=== PATIENT | female | born 1965 | race Caucasian/White ===

== ENCOUNTER → 2018-09-09 | Outpatient (CLI) | payer BC ==
[2018-09-09 14:12] VITALS: BP 148/89; PULSE 71; RESP 16; TEMP 98.5; BMI 36.3
--- NOTE | 2018-09-09 15:57 | P.GSHP ---
History of Present Illness H&P Date: 09/09/18 Chief Complaint: Abnormal mammogram and ultrasound The patient is a 53-year-old white female who underwent routine screening mammogram was noted to have an area of concern in the left breast. She subsequently had a left breast diagnostic mammogram and bilateral ultrasound. On the bilateral ultrasound she was noted to have within the right breast at the 5 o'clock position through a 5 mm hypoechoic nodule. Within the left breast at the 7 o'clock position there was a 6 x 5 mm hypoechoic area. The impression was these were suspicious findings and bilateral fine-needle ultrasound-guided aspiration or core biopsy recommended. The patient does not feel anything of concern in her breasts. The patient states that she has not had any history of trauma or infection in the breast. She drinks approximately 8-10 cups of coffee each morning. She does not smoke and is not exposed to secondhand smoke. She is chocolate every other day. Past family history: 1. Father: Liver cancer he doesn't drink or 2. Medical: Skin cancer 3. Paternal aunt colon cancer 4. Maternal aunt: Breast cancer 5. Maternal uncle: Leukemia 6. Maternal uncle: Throat cancer 7. Paternal aunt: Colon cancer 8. Paternal uncle: Kidney cancer Hormonal history: Menarche: 8 1 miscarriage, first live at 36, breast fed: Yes Menopause: Hysterectomy at 43 1 ovary removed control pills: 1 year Hormones: Negative Past surgical history: 1. One orally removed and hysterectomy 2. Foot surgery 3. Carpal tunnel Past medical history: 1. Fibromyalgia 2. Asthma 3. Hypertension 4. Prediabetic 5. Arthritis - Constitutional Constitutional: Denies chills, Denies fever - EENT Eyes: denies blurred vision, denies pain Ears: deny: decreased hearing, tinnitus Ears, nose, mouth and throat: Denies headache, Denies sore throat - Breasts Breasts: bilateral: as per HPI - Cardiovascular Cardiovascular: Reports high blood pressure - Respiratory Comment: Asthma - Gastrointestinal Gastrointestinal: Denies abdominal pain, Denies diarrhea, Denies nausea, Denies vomiting - Genitourinary (Female) Comment: Status post hysterectomy Genitourinary: Reports as per HPI - Menstruation Menstruation: Reports as per HPI - Musculoskeletal Musculoskeletal: Denies myalgias - Integumentary Integumentary: Reports rash - Neurological Neurological: Denies numbness, Denies weakness - Psychiatric Psychiatric: Denies anxiety, Denies depression - Endocrine Comment: Prediabetic Endocrine: Reports as per HPI - Hematologic/Lymphatic Comment: none - Allergic/Immunologic Allergic/Immunologic: Reports seasonal allergies Past Medical History History of Any Multi-Drug Resistant Organisms: None Reported Smoking Status: Never smoker Medications and Allergies Home Medications Medication Instructions Recorded Confirmed Type Albuterol Inhaler [Ventolin Hfa 1 - 2 puff INHALATION RT-Q6H 09/09/18 09/09/18 History Inhaler] Budesonide [Pulmicort Flexhaler] 2 puff INHALATION 09/09/18 History Cetirizine HCl 10 mg PO DAILY 09/09/18 09/09/18 History Clobetasol Propionate [Temovate 1 applic TOPICAL 09/09/18 History 0.05% Cream] Losartan/Hydrochlorothiazide 1 each PO 09/09/18 History [Losartan-Hctz 100-25 mg Tab] Metoprolol Tartrate [Lopressor] 50 mg PO BID 09/09/18 09/09/18 History Allergies Allergy/AdvReac Type Severity Reaction Status Date / Time sulfamethoxazole Allergy Rash/Hives Unverified 09/09/18 14:12 [From Bactrim] trimethoprim [From Bactrim] Allergy Rash/Hives Unverified 09/09/18 14:12 Surgical - Exam Vital Signs Temp Pulse Resp BP Pulse Ox 98.5 F 71 16 148/89 96 09/09/18 14:07 09/09/18 14:07 09/09/18 14:07 09/09/18 14:07 09/09/18 14:07 BMI 36.6 - General well developed, well nourished, no distress, obese - Eyes normal ocular movement - ENT no hearing loss, no congestion - Neck no masses, trachea midline - Respiratory normal respiratory effort, clear to auscultation - Cardiovascular Rhythm: regular Heart Sounds: normal: S1, S2 - Abdomen Abdomen: soft, non tender, no guarding, no rigid, no rebound - Integumentary normal turgor - Neurologic no disoriented, no combative - Musculoskeletal normal gait, normal posture - Psychiatric oriented to time, oriented to person, oriented to place, speech is normal, memory intact Breast examination: Breast size 44 triple D Right breast: Multi-positional exam fibrocystic changes no dominant masses or nodules of concern Right axilla: No adenopathy of concern {: Multi-positional exam dominant masses or nodules of concern Left axilla: No adenopathy of concern Results Mammogram and ultrasound results reviewed Assessment and Plan Assessment: Impression: 1. Abnormal mammogram 2. Abnormal ultrasound 3. Fibrocystic breast changes 4. Fibromyalgia 5. Asthma 6. Hypertension 7. Prediabetic 8. Arthritis The risks and benefits of ultrasound-guided aspiration/core biopsy were discussed with the patient. She understands this is to be scheduled in the near future. Additionally the patient understands that there was cystic changes can be exacerbated by caffeine intake and she has agreed to decrease her 8-10 cups of coffee each morning. Plan: 1. Ultrasound guided aspiration/biopsy of lesions of concern in both right and left breast 2. Decrease caffeine intake 3. Medical management of medical conditions 4. Follow-up after biopsy of breast performed Cc:
== END | disposition home or self-care (01) ==
LOC: WWCWWP 13:41
PROVIDERS: ATTEND Surgery
DX: Z53.9 Procedure and treatment not carried out, unspecified reason (principal)

== ENCOUNTER → 2018-10-21 | Day surgery (SDC) | payer BC ==
[2018-10-21 10:48] VITALS: RESP 16; BMI 36.1
[2018-10-21 12:36] VITALS: BP 145/90; PULSE 71; TEMP 98.1
--- NOTE | 2018-10-21 13:49 | USB ---
EXAMINATION TYPE: US biopsy breast VAD LT, US biopsy breast add'l VAD RT, MG diagnostic mammo BI wo CAD DATE OF EXAM: 10/21/2018 CLINICAL HISTORY: R92.8 abn mamm. TECHNIQUE: Ultrasound guided core biopsy of bilateral breasts. COMPARISON: NONE FINDINGS: The procedure of ultrasound guided core biopsy was explained to the patient. Benefits, alternatives, and risks were discussed. An informed consent was then obtained. Preprocedural timeout was performed. Site A (left breast at 5:00): The patient was placed in supine positioning for imaging and for the procedure. The overlying skin was prepped and draped in usual sterile fashion. Lidocaine buffered with bicarbonate was used as anesthetic into the skin and subcutaneous tissue up to the 0.6 x 0.2 x 0.5 cm mass at the 7:00 position in the left breast. Under ultrasound guidance, a 12-gauge vacuum assisted biopsy gun device was used to obtain 4 core samples. Following this, a biopsy coil-shaped biopsy marker left at the site of biopsy. Site B (right breast at 5:00): The patient was placed in supine positioning for imaging and for the procedure. The overlying skin was prepped and draped in usual sterile fashion. Lidocaine buffered with bicarbonate was used as anesthetic into the skin and subcutaneous tissue up to the 0.3 x 0.2 x 0.5 cm mass at the 5:00 position in the right breast. Under ultrasound guidance, a 12-gauge vacuum assisted biopsy gun device was used to obtain 4 core samples. Following this, a ribbon-shaped biopsy marker was left at the site of biopsy. The patient tolerated the procedure well without any immediate complication. The patient was kept in the radiology department for short stay after the procedure and then discharged home in stable condition. Of note there is collapse of both of the complex cystic lesions at the time of biopsy. Postprocedure mammogram demonstrates appropriate biopsy marker placement. IMPRESSION: Successful, uncomplicated ultrasound guided core biopsy of bilateral complex cystic masses, full pathology results to follow. Pathology Results: Benign A. LEFT BREAST, 7:00, ULTRASOUND GUIDED CORE BIOPSY: Fibrocystic changes including cysts, apocrine metaplasia, sclerosing adenosis and mild usual type ductal hyperplasia. B. RIGHT BREAST, 5:00, ULTRASOUND GUIDED CORE BIOPSY: Fibrocystic changes including stromal fibrosis with scar, cysts, apocrine metaplasia and mild usual type ductal hyperplasia. Recommendation Follow up mammogram of both breasts in 6 months. [facility]
== END | disposition home or self-care (01) ==
LOC: RADUSWWP 10:26
PROVIDERS: ATTEND Surgery
DX: N60.12 Diffuse cystic mastopathy of left breast (principal); N60.11 Diffuse cystic mastopathy of right breast; N60.92 Unspecified benign mammary dysplasia of left breast; N60.91 Unspecified benign mammary dysplasia of right breast
CPT/HCPCS: 88305; 77066; 19083; 19084; A4648; J2001

== ENCOUNTER → 2018-10-31 | Outpatient (CLI) | payer BC ==
[2018-10-31 14:43] VITALS: BP 129/82; PULSE 71; RESP 16; TEMP 98.4; BMI 36.4
--- NOTE | 2018-10-31 14:51 | P.PN ---
Subjective Progress Note Date: 10/31/18 Anjana is a 53-year-old white female status post bilateral breast ultrasound- guided core biopsy. Pathology bilaterally was benign fibrocystic changes. The patient does have some ecchymosis in both breast which is resolving. She has had no fever or chills. She has no hematomas. Objective - Vital Signs Vital signs: Vital Signs Temp 98.4 F 10/31/18 14:32 Pulse 71 10/31/18 14:32 Resp 16 10/31/18 14:32 BP 129/82 10/31/18 14:32 Pulse Ox 97 10/31/18 14:32 - Exam BMI 36.4 - Constitutional General appearance: Present: obese - EENT Eyes: Present: EOMI ENT: Present: hearing grossly normal - Neck Neck: Present: normal ROM - Respiratory Respiratory: bilateral: CTA - Cardiovascular Rhythm: regular Heart sounds: normal: S1, S2 - Integumentary Integumentary: Present: normal turgor - Musculoskeletal Musculoskeletal: Present: gait normal - Psychiatric Psychiatric: Present: A&O x's 3, appropriate affect, intact judgment & insight - Additional findings Additional findings: Bi- lateral breast biopsy sites with some ecchymosis, no evidence of infection, small hematomas bilaterally Assessment and Plan Assessment: Present: 1. Bilateral breast fibrocystic changes 2. Resolving ecchymosis 3. Fibromyalgia 4. Asthma 5. Prediabetic 6. Arthritis 1. Family history of cancer Plan: 1. Bilateral mammogram in physician exam in 6 months 2. Medical management of medical conditions CC: Dr. Ellis
== END | disposition home or self-care (01) ==
LOC: WWCWWP 14:27
PROVIDERS: ATTEND Surgery
DX: Z53.9 Procedure and treatment not carried out, unspecified reason (principal)

== ENCOUNTER → 2019-05-01 | Outpatient (CLI) | payer BC ==
--- NOTE | 2019-05-01 11:15 | MM ---
Reason for exam: follow-up at short interval from prior study. Last mammogram was performed 6 months ago. History: Patient had first child at age 36. Family history of breast cancer in maternal aunt at age 50. Benign US biopsy breast VAD LT of the left breast, October 21, 2018. Benign US biopsy breast add'l VAD RT of the right breast, October 21, 2018. Physical Findings: Nurse did not find any significant physical abnormalities on exam. MG 3D Diag Mammo W/Cad KELSEY Bilateral CC and MLO view(s) were taken. Prior study comparison: October 21, 2018, bilateral MG diagnostic oliverio BI wo CAD. There are scattered fibroglandular densities. Previous mammotome biopsy in the right and left breast. Nodular asymmetric density superior left MLO does not persist on lateral 3D view. These results were verbally communicated with the patient and result sheet given to the patient on 05/01/19. ASSESSMENT: Benign, BI-RAD 2 RECOMMENDATION: Routine screening mammogram of both breasts in 1 year.
== END | disposition home or self-care (01) ==
LOC: RADMAMWWP 09:23
PROVIDERS: ATTEND Surgery
DX: R92.8 Other abnormal and inconclusive findings on diagnostic imaging of breast (principal)
CPT/HCPCS: 77062; 77066

== ENCOUNTER → 2023-11-19 | Outpatient (CLI) | payer BC ==
--- NOTE | 2023-11-21 22:17 | MR ---
EXAMINATION TYPE: MR knee RT wo con DATE OF EXAM: 11/19/2023 COMPARISON: NONE HISTORY: Right knee pain x 2 weeks, injury. TECHNIQUE: Multiplanar, multisequence images of the knee is performed without IV contrast. FINDINGS: MEDIAL MENISCUS: Triangular shaped signal posterior horn does not definitively extend to articular colin rface. LATERAL MENISCUS: Anterior and posterior horns are intact without tear. CRUCIATE LIGAMENTS: The anterior and posterior cruciate ligaments are intact and unremarkable. COLLATERAL LIGAMENTS: The medial collateral ligament and lateral collateral ligament complex are inta ct. Fluid signal surrounds the medial collateral ligament. EXTENSOR MECHANISM: Visualized quadriceps and patellar tendons are intact. EFFUSION: No significant suprapatellar joint effusion. POPLITEAL CYST: Small size popliteal/alejo cyst. TRICOMPARTMENT SPACES: Mild to moderate compartment joint space loss. No significant spurring. CARTILAGE: Tricompartmental articular cartilage is preserved BONE MARROW SIGNAL: Single subchondral cyst central tibia coronal Image 23. OTHER: No additional significant abnormality is appreciated. IMPRESSION: 1. Intrasubstance tear posterior horn medial meniscus. No definitive full-thickness meniscal tear. 2. [id number] MCL sprain injury. 3. Small sized popliteal cyst. 4. Mild to borderline moderate tricompartment degenerative changes as detailed above.
== END | disposition home or self-care (01) ==
LOC: RADMRIMAIN 11:14
PROVIDERS: ATTEND Orthopaedic Surgery
DX: S83.249A Other tear of medial meniscus, current injury, unspecified knee, initial encounter